=== PATIENT | female | born 1945 | race Caucasian/White ===

== ENCOUNTER 2017-12-12 12:06 | Observation (INO) | payer MEDICARE, OTHER ==
[2017-12-12 12:58] LABS: Urine Bilirubin 3 mg/dl (NEGATIVE); Urine Blood Negative /ul (NEGATIVE); Urine Ketone Negative (NEGATIVE); Urine Nitrite Negative (NEGATIVE); Urine Protein Negative (NEGATIVE); Urine Specific Gravity 1.015 SP.GR. (1.005-1.010); Urine Urobilinogen Normal (NORMAL)
[2017-12-12 13:14] LABS: Albumin * 3.2 gm/dl (3.4-5.0); Anion Gap 13.8 mmol/L (6.8-13.8); BUN/Creatinine Ratio 9.1 (9.0-21.6); Bilirubin, Total 3.4 mg/dL (0.0-1.1); Calcium * 9.7 mg/dL (7.9-10.9); Carbon Dioxide 28.9 mmol/L (24-32.6); Potassium 3.7 mmol/L (3.4-4.6); Total Protein 7.5 gm/dL (6.2-8.2)
[2017-12-12 13:23] LABS: Urine Appearance Clear; Urine Bacteria TRACE; Urine Color Orange; Urine RBC None Seen /hpf (0-5); Urine WBC 0-5 /hpf (0-5)
[2017-12-12 13:46] LABS: Hematocrit 42.9 % (37.0-47.0); Hemoglobin 15.1 gm/dL (12.5-16.0); Mean Cell Volume 92.1 fl (78-100); Mean Corpuscular Hemoglobin 32.4 pg (27-31); Mean Corpuscular Hgb Conc 35.2 g/dl (32-36); Neutrophil # 4.1 K/mm3 (1.3-6.0); Neutrophil % 57.2 % (42-75.0); Platelet Count 192 K/mm3 (150-450); Red Blood Count 4.66 M/mm3 (4.2-5.4); Red Cell Distribution Width 11.7 % (11.5-14.0); White Blood Count 7.2 K/mm3 (4.0-10.5)
[2017-12-12] MEDS ORDERED: DIATRIZOATE MEGLUMINE, SODIUM 30 ML BTL ONE (13:59)
[2017-12-12] MEDS ORDERED: DIATRIZOATE MEGLUMINE, SODIUM 30 ML BTL PO ONE (14:01)
--- NOTE | 2017-12-12 16:11 | ERNOTE ---
Abdominal HPI - Narrative Date of Service: 12/12/17 - General Chief Complaint: Abdominal Pain Time Seen by Provider: 12/12/17 12:29 Source: patient, family, RN notes reviewed, past records Exam Limitations: no limitations - Immun/Allergies/Home Medications Immunizatons: IMMUNIZATION HX History of Influenza Vaccine No Allergies/Adverse Reactions: Allergies No Known Allergies Allergy (Verified 12/12/17 12:18) Home Medications: HOME MEDICATIONS Enalapril/Hydrochlorothiazide [Enalapril-Hctz 5-12.5 mg Tab] 1 each PO DAILY [Last Taken Unknown] Levothyroxine Sodium [Synthroid] 25 mcg PO DAILY 12/12/17 [Last Taken Unknown] Levothyroxine Sodium [Synthroid] 150 mcg PO DAILY 12/12/17 [Last Taken Unknown] Oxybutynin Chloride [Ditropan] 5 mg PO BID 12/12/17 [Last Taken Unknown] Ranitidine HCl [Acid Butadiene Converter Utility Operator] 75 mg PO DAILY 12/12/17 [Last Taken Unknown] - History of Present Illness Narrative: Jessa is a 72 year old female who presents to the ED with abdominal pain that began 3 days ago. The pain is in her epigastric region and radiates outward. She had a similar episode approximately 2 weeks ago that resolved when she had a bowel movement. She reports having a bowel movement today with some improvement in the pain, but not complete resolution. Her bowel movements have been histologic aide in color than usual. She also noticed that her urine was darker than normal. She denies needing any pain medication on initial exam. Prior Abdominal Problems: Present: none Prior Treatment: Absent: recently seen Review of Systems - Review of Systems Constitutional: Present: malaise. Absent: recent illness, fever, chills EYE: Present: no symptoms reported ENT: Absent: nose congestion, sore throat Respiratory: Absent: shortness of breath, cough Cardiology: Present: edema. Absent: chest pain Gastrointestinal/Abdominal: Present: nausea, abdominal pain. Absent: vomiting, diarrhea Genitourinary: Absent: frequency, dysuria Musculoskeletal: Absent: back pain, neck pain Skin: Absent: rash, lesions Neurological: Absent: headache, dizziness/light-headedness Endocrine: Present: no symptoms reported Hematologic/Lymphatic: Absent: easy bruising, easy bleeding Psych: Present: no symptoms reported - Patient's Past Medical History Patient History - Medical: Diabetes Type 2, GERD, Hypothyroidism, Obesity Patient History - Cardiac/Respiratory: Hypertension, Hyperlipidemia Patient History - Cancer: No Hx of Cancer Patient History - Surgical Procedures: No surgical history Patient History - Other: None LMP (females 10-50): Menopausal - Has IUD d/t postmenopausal bleeding - Social History Living Situations: spouse Abuse History: No History of abuse Psych History: No pertinent hx Smoking Status: Never smoker Alcohol Use: none Drug Use: none - Immunizations History of Influenza Vaccine: No Physical Exam - Physical Exam General Appearance: Present: wd/wn, alert, anxious, obese Head Exam: Present: normal inspection Eye Exam: Normal inspection: bilateral Neck: Present: normal inspection, nontender, supple Respiratory: Present: no respiratory distress, normal breath sounds, no accessory muscle use, lungs clear Cardiovascular/Chest: Present: regular rate, rhythm, no murmur Gastrointestinal/Abdominal: Present: normal bowel sounds, nondistended, soft, tenderness - Epigastric and RUQ Extremity Exam: Present: non-tender, normal range of motion, pedal edema Neurological Exam: Present: alert, oriented, normal mood/affect, no motor/ sensory deficits Skin Exam: Present: normal color, warm/dry ED Progress - Results and Orders Patient's Lab Results:: I have reviewed the patient's lab results. - Vital Signs Patient's Vital Signs:: I have reviewed the patient's vital signs. Vital Signs: Vital Signs 12/12/17 12/12/17 12/12/17 12:09 12:51 13:35 Temperature 36.4 C L Pulse Rate 66 68 71 Respiratory 12 14 16 Rate Blood Pressure 124/76 126/78 O2 Sat by Pulse 96 97 94 Oximetry 12/12/17 12/12/17 12/12/17 14:04 14:34 14:56 Temperature Pulse Rate 72 76 70 Respiratory 16 16 14 Rate Blood Pressure 137/71 136/71 144/63 O2 Sat by Pulse 95 98 96 Oximetry 12/12/17 15:17 Temperature Pulse Rate 50 L Respiratory 12 Rate Blood Pressure 157/70 O2 Sat by Pulse 99 Oximetry - Progress/Reassessment Chief Complaint: Abdominal Pain Progress:: Unchanged Plan - Plan Plan: Dr. Brody contacted regarding test results and possible surgical intervention for acute cholecystitis shown by ultrasound. Per my discussion with him, the patient does not need a cholecystectomy or an ERCP emergently, but needs to be treated for acute pancreatitis with IV fluids and repeat labwork. Dr. Martinez contacted and will admit patient to observation status. She will be NPO. Patient agrees with plan. Informed that she will likely need a cholecystectomy at a later time on a scheduled basis. Also discussed possible mass seen on CT with patient and f/u via colonoscopy, which she is due for per Dr. Brody's records. Departure Clinical Impression: Acute pancreatitis Qualifiers: Pancreatitis type: biliary Acute pancreatitis complication: no infection or necrosis Qualified Code(s): K85.10 - Biliary acute pancreatitis without necrosis or infection - Departure Disposition: Still a patient Condition: Stable
[2017-12-12] MEDS ORDERED: NORMAL SALINE 1,000 ML IV ONE (18:50)
[2017-12-12] MEDS ORDERED: POTASSIUM CHLORIDE 20 MEQ in DEXTROSE 5%-NORMAL SALINE 990 ML IV SCH (20:00)
--- NOTE | 2017-12-12 21:08 | HP ---
Chief Complaint - Chief Complaint Date of Service: 12/12/17 Time of Service: 21:06 Chief Complaint: " Abdominal pain, Nausea". Source of HPI- Pt; reliable, ERP Report. History of Present Illness: Mrs. Chaney is a 72-yr-old [place] pt of Dr. Kelechi Martinez with a PMH of: DM II, HTN, HLD, Overactive bladder, Morbid Obesity & ALEXANDRA. Pt states that since October 2017, she has had abdominal symptoms of "paper thin stools, RT upper abdomen pain and cream color stools". She thought her Metformin was causing her symptoms and she saw her PCP and the medication was stopped. She states that her symptoms improved. But for the first 10 days in November 2017, the previous symptoms came back. She thought she was having 'stomach flu' and so she resorted to treating her symptoms with Ranitidine and Advil. This eased her abdominal pain. She reports that in the last 3 days, she has felt more tired than usual. She will wake up and get dressed, but will turn around and sleep. She finally chose to call her PCP's office today about her symptoms and she was advised to go the ED. She denies vomiting but has felt nauseated. Food/drink does not make her abdominal feel worse. She denies fevers and chills. She has no history of ETOH use or dependence. At the ED, Laboratory studies showed: Total bili--> 3.4, AST--> 295, ALT--> 376, ALP--> 402, Lipase--> 1783 & Amylase- -> 137. Abdominal CT revealed: fatty liver,gall bladder distention with calcified gallstone and incidental masslike finding in the anorectal region. Follow-up imaging with Abdominal US showed: Cholelithiasis with gallbladder wall thickening, but no pericholecystic fluid was visualized. The ERP consulted the surgeon ( Dr. Brody) about pt's findings on the imaging studies and he per ERP, he did not think the pt needed emergent Cholecystectomy or an ERCP, but goal of treatment agreed on admitting and treating for the acute pancreatitis and trending labs and further work-up will be determined. - Patient's Past Medical History Patient History - Medical: Diabetes Type 2, GERD, Hypothyroidism, Obesity Patient History - Cardiac/Respiratory: Hypertension, Hyperlipidemia, Sleep Apnea Patient History - Cancer: No Hx of Cancer Patient History - Surgical Procedures: No surgical history Patient History - Other: None LMP (females 10-50): Menopausal - Has IUD d/t postmenopausal bleeding - Family History Father Family History - Medical: Family History - Cardiac/Respiratory: Coronary Heart Disease Mother Family History - Cardiac/Respiratory: Hypertension, Other - alive at 92 yrs. - Social History Living Situations: significant other Abuse History: No History of abuse Psych History: No pertinent hx Smoking Status: Never smoker Have you smoked in the past 12 months: No Alcohol Use: none Drug Use: none - Immunizations History of Influenza Vaccine: No Review Of Systems (GEN) - Review of Systems Generalized/Overall Review: Present: Weakness, Malaise, Fatigue EENTM: Absent: Ear Pain, Nose Congestion Respiratory: Absent: Cough, Shortness of Breath, Orthopnea Cardiac: Absent: Chest Pain, Edema, Palpitations, Syncope Abdominal: Present: Nausea, Abdominal Pain, Constipation, Diarrhea. Absent: Vomiting, Hematemesis Genitourinary: Absent: Burning, Frequency Musculoskeletal: Absent: Joint Pain, Back Pain, Joint Swelling Neurological: Absent: Headache, Anxiety, Depressed, Emotional Problems, Weakness Skin: Absent: Dryness, Lesions, Lumps, Change in Color Endocrine: Present: Intolerance to Cold. Absent: Intolerance to Heat Misc: All systems neg except as marked Immunizations: IMMUNIZATION HX History of Influenza Vaccine No Allergies/Adverse Reactions: Allergies Allergy/AdvReac Type Severity Reaction Status Date / Time No Known Allergies Allergy Verified 12/12/17 12:18 Home Medications: HOME MEDICATIONS Aspirin [Aspirin EC] 81 mg PO DAILY 12/12/17 [Last Taken 12/12/17 08:00] Docusate Sodium [Colace] 100 mg PO DAILY PRN 12/12/17 [Last Taken 12/05/17] Enalapril/Hydrochlorothiazide [Enalapril-Hctz 5-12.5 mg Tab] 1 each PO DAILY [Last Taken Unknown] Levothyroxine Sodium [Synthroid] 25 mcg PO DAILY 12/12/17 [Last Taken Unknown] Levothyroxine Sodium [Synthroid] 150 mcg PO DAILY 12/12/17 [Last Taken Unknown] Lumigan 0.01% Ophthalmic Solution 1 drop EACHEYE DAILY 12/12/17 [Last Taken 21:00] Meclizine HCl 1 mg PO DAILY PRN 12/12/17 [Last Taken Unknown] Ondansetron [Zofran Odt] 1 mg PO PRN PRN 12/12/17 [Last Taken Unknown] Oxybutynin Chloride [Ditropan] 5 mg PO BID 12/12/17 [Last Taken Unknown] Polyethylene Glycol 3350 [Miralax] 17 gm PO DAILY PRN 12/12/17 [Last Taken 12/08] Ranitidine HCl [Acid Route Sales Driver] 75 mg PO DAILY 12/12/17 [Last Taken Unknown] Exam - Exam Vital Signs: Vital Signs - Last Taken Temp 37.0 C 12/12/17 19:29 Pulse 55 L 12/12/17 19:29 Resp 16 12/12/17 19:29 BP 146/78 12/12/17 19:29 Pulse Ox 94 12/12/17 19:29 Constitutional: Present: Alert, Oriented x3, Cooperative, No distress ENT Exam: Present: normal ENT inspection, dry mucous membranes Eye Exam: bilateral eye: normal inspection, PERRL Neck: Present: non-tender, full range of motion, supple Back Exam: Present: normal inspection, no CVA tenderness Breasts: Present: Exam deferred Respiratory: Present: no accessory muscle use, No rales, No wheezing Cardiovascular/Chest: Present: normal peripheral pulses, regular rate, rhythm, no chest tenderness, no edema Abdomen: Present: Normal bowel sounds, soft, no rebound tenderness, tender - RUQ. Absent: guarding /Rectal: Present: Exam deferred Extremity: Present: normal range of motion, non-tender, normal inspection Skin Exam: Present: warm/dry, no cyanosis Lymphatic: Present: no adenopathy Neurologic: Present: alert, normal mood/affect, oriented x 3 Appearance: Present: appropriate appearance, appropriate insight Eye contact: Present: cooperative, good eye contact, normal speech Thoughts: Present: no apparent hallucination Diagnostic Studies: Abnormal Lab Results 12/12/17 Range/Units 20:05 Amylase 137 H (25-115) U/L Laboratory Results WBC 7.2 K/mm3 (4.0-10.5) 12/12/17 12:55 RBC 4.66 M/mm3 (4.2-5.4) 12/12/17 12:55 Hgb 15.1 gm/dL (12.5-16.0) 12/12/17 12:55 Hct 42.9 % (37.0-47.0) 12/12/17 12:55 MCV 92.1 fl (78-100) 12/12/17 12:55 MCH 32.4 pg (27-31) H 12/12/17 12:55 MCHC 35.2 g/dl (32-36) 12/12/17 12:55 RDW 11.7 % (11.5-14.0) 12/12/17 12:55 Plt Count 192 K/mm3 (150-450) 12/12/17 12:55 MPV 12.0 fl (6.0-9.5) H 12/12/17 12:55 Immature Gran % (Auto) 0.30 % (0.001-0.429) 12/12/17 12:55 Immature Gran # (Auto) 0.02 K/mm3 (0.000-0.0310) 12/12/17 12:55 Neutrophils % 57.2 % (42-75.0) 12/12/17 12:55 Lymphocytes % 26.1 % (20-51) 12/12/17 12:55 Monocytes % 11.0 % (0.0-9) H 12/12/17 12:55 Eosinophils % 4.0 % (0.0-3.0) H 12/12/17 12:55 Basophils % 1.4 % (0.0-1.0) H 12/12/17 12:55 Nucleated RBC % 0.0 k/mm3 (0-1) 12/12/17 12:55 Neutrophils # 4.1 K/mm3 (1.3-6.0) 12/12/17 12:55 Lymphocytes # 1.9 k/mm3 (1.5-3.5) 12/12/17 12:55 Monocytes # 0.8 k/mm3 (0.0-1.0) 12/12/17 12:55 Eosinophils # 0.3 k/mm3 (0.0-0.7) 12/12/17 12:55 Absolute Basophils 0.1 k/mm3 (0.0-0.1) 12/12/17 12:55 Sodium 140 mmol/L (132-142) 12/12/17 12:55 Plasma Sodium 140 mmol/L (130-142) 12/12/17 12:55 Potassium 3.7 mmol/L (3.4-4.6) 12/12/17 12:55 Chloride 101 mmol/L (97-106) 12/12/17 12:55 Carbon Dioxide 28.9 mmol/L (24-32.6) 12/12/17 12:55 Anion Gap 13.8 mmol/L (6.8-13.8) 12/12/17 12:55 BUN 7 mg/dL (3-23) 12/12/17 12:55 Creatinine 0.77 mg/dL (0.4-1.4) 12/12/17 12:55 Est GFR (Non-Af Amer) 79 mL/min (60-130) 12/12/17 12:55 BUN/Creatinine Ratio 9.1 (9.0-21.6) 12/12/17 12:55 Random Glucose 126 mg/dL (70-110) H 12/12/17 12:55 Calcium 9.7 mg/dL (7.9-10.9) 12/12/17 12:55 Calcium Adj for Albumin 10.0 mg/dL (8.4-10.2) 12/12/17 12:55 Total Bilirubin 3.4 mg/dL (0.0-1.1) H 12/12/17 12:55 AST 295 U/L (0-48) H 12/12/17 12:55 ALT 376 U/L (19-67) H 12/12/17 12:55 Alkaline Phosphatase 402 U/L (50-170) H 12/12/17 12:55 Total Protein 7.5 gm/dL (6.2-8.2) 12/12/17 12:55 Albumin 3.2 gm/dl (3.4-5.0) L 12/12/17 12:55 Amylase 137 U/L (25-115) H 12/12/17 20:05 Lipase 1783 U/L (73-393) H 12/12/17 12:55 Urine Color [place] 12/12/17 12:46 Urine Appearance Clear 12/12/17 12:46 Urine pH 6.0 pH (5.0-7.0) 12/12/17 12:46 Ur Specific [place] 1.015 SP.GR. (1.005-1.010) 12/12/17 12:46 Urine Protein Negative mg/dL (NEGATIVE) 12/12/17 12:46 Urine Glucose (UA) Negative mg/dL (NEGATIVE) 12/12/17 12:46 Urine Ketones Negative mg/dL (NEGATIVE) 12/12/17 12:46 Urine Blood Negative /ul (NEGATIVE) 12/12/17 12:46 Urine Nitrate Negative (NEGATIVE) 12/12/17 12:46 Urine Bilirubin 3 mg/dl (NEGATIVE) H 12/12/17 12:46 Urine Ictotest Positive (NEGATIVE) H 12/12/17 12:46 Urine Urobilinogen Normal EU/dl (NORMAL) 12/12/17 12:46 Ur Leukocyte Esterase 25 /ul (NEGATIVE) H 12/12/17 12:46 Urine RBC None seen /hpf (0-5) 12/12/17 12:46 Urine WBC 0-5 /hpf (0-5) 12/12/17 12:46 Ur Epithelial Cells 0-5 /hpf (0-5) 12/12/17 12:46 Urine Bacteria Trace (NONE) 12/12/17 12:46 Urine Culture Comments Culture to follow 12/12/17 12:46 Assessment/Plan - Assessment/Plan (1) Acute pancreatitis Assessment: Pt reports abdominal pain in the RUQ and is tender on physical exam. There is no guarding or rebound tenderness. She denies fevers and chills. WBC is in the NR. Abdominal CT showed normal appearing Pancreas, but the findings on the CT Abdomen and US abd involving gallstones and distended gall bladder suggest gallsstones may be the cause of the Acute Pancreatitis. Will admit and provide supportive cares with: aggressive IVF hydration to prevent risk of necrotizing pancreatitis, pain control, antiemetics, resting the gut. Will trend Amylase/ Lipase, surgery consulted and will eval. tomorrow. Laboratory Tests 12/12/17 12/12/17 12:55 20:05 Amylase 137 H Lipase 1783 H Problem: Acute Qualifiers: Pancreatitis type: biliary Acute pancreatitis complication: no infection or necrosis Qualified Code(s): K85.10 - Biliary acute pancreatitis without necrosis or infection (2) Cholelithiasis Assessment: On Abdominal US- gall bladder wall thickening, no pericholecystic fluid. Determined not to require emergent cholecystectomy or ERCP. She has no signs of SIRS- no fevers, Leukocytosis, but will check CRP levels. Surgery to eval in am. Problem: Acute (3) Elevated liver enzymes Problem: Chronic (4) High total bilirubin Assessment: Will check direct bili to determine indirect bili. ? Diff Dx; could be due to intrahepatic obstruction, gallstones or cholangiocarcinoma Problem: Acute (5) Diabetes Assessment: HgA1c on 10/25/17- 6.3. Not on any oral glycemic medications. Monitor accuchecks ACHS. Continue IV fluid with dextrose while NPO. Problem: Chronic Qualifiers: Diabetes mellitus type: type 2 (6) HTN (hypertension) Assessment: Stable- On Enalapril Problem: Chronic Qualifiers: Hypertension type: essential hypertension Qualified Code(s): I10 - Essential (primary) hypertension (7) Obstructive sleep apnea Problem: Chronic (8) Morbid obesity with BMI of 45.0-49.9, adult Problem: Chronic
[2017-12-12] MEDS ORDERED: DOCUSATE SODIUM 100 MG CAPSULE PO PRN (23:10)
[2017-12-12] MEDS ORDERED: ONDANSETRON 4 MG TAB.RAPDIS PO PRN (23:10)
[2017-12-12] MEDS ORDERED: MECLIZINE HCL 25 MG TABLET PO PRN (23:10)
[2017-12-12] MEDS ORDERED: POLYETHYLENE GLYCOL 3350 119 GM BTL PO PRN (23:10)
[2017-12-13] MEDS: POTASSIUM CHLORIDE 20 MEQ in DEXTROSE 5%-NORMAL SALINE 990 ML IV SCH ×2 (00:45→08:16)
[2017-12-13 05:09] LABS: Prothrombin Time (Patient) 11.1 Seconds (9.0-11.0)
[2017-12-13 05:10] LABS: INR 1.11 INR (0.90-1.10)
[2017-12-13 05:15] LABS: Albumin * 2.3 gm/dl (3.4-5.0); Anion Gap 7.3 mmol/L (6.8-13.8); BUN/Creatinine Ratio 9.7 (9.0-21.6); Bilirubin Direct 0.6 mg/dL (0.0-0.3); Bilirubin, Total 1.7 mg/dL (0.0-1.1); Ca. Corrected For Albumin 8.7 mg/dL (8.4-10.2); Calcium * 7.7 mg/dL (7.9-10.9); Carbon Dioxide 28.1 mmol/L (24-32.6); Potassium 3.4 mmol/L (3.4-4.6); Total Protein 5.5 gm/dL (6.2-8.2)
[2017-12-13] MEDS ORDERED: MORPHINE SULFATE 2 MG/ML DISP.SYRIN IV PRN (05:57)
[2017-12-13] MEDS ORDERED: ONDANSETRON HCL/PF 2 MG/ML VIAL IV PRN (05:57)
--- NOTE | 2017-12-13 06:15 | PN ---
Subjective - Date and Time Seen Date: 12/13/17 Time: 06:11 Subjective Narrative: Pt examined this am. Denies nausea. She has occasional upper abd pain but did not require any prn. Has been NPO. No other acute events overnight. Objective - Vitals Vitals: Last Vital Signs Temp 36.4 C L 12/13/17 01:00 Pulse 60 12/13/17 01:00 Resp 18 12/13/17 01:00 BP 118/63 12/13/17 01:00 Pulse Ox 91 12/13/17 01:00 - Abnormal Lab Findings Abnormal Lab Findings: Abnormal Lab Results 12/12/17 12/13/17 12/13/17 Range/Units 20:05 04:58 04:58 PT 11.1 H (9.0-11.0) Seconds INR (Anticoag Therapy) 1.11 H (0.90-1.10) INR Random Glucose 166 H D (70-110) mg/dL Calcium 7.7 L (7.9-10.9) mg/dL Total Bilirubin 1.7 H (0.0-1.1) mg/dL Direct Bilirubin 0.6 H (0.0-0.3) mg/dL AST 122 H (0-48) U/L ALT 213 H (19-67) U/L Alkaline Phosphatase 273 H (50-170) U/L C-Reactive Prot, Quant 4.0 H (0.0-0.9) mg/dL Total Protein 5.5 L (6.2-8.2) gm/dL Albumin 2.3 L (3.4-5.0) gm/dl Amylase 137 H (25-115) U/L Lipase 1095 H (73-393) U/L - Exam Constitutional: Present: Alert, Oriented x3, Cooperative, No distress, Morbidly obese ENT Exam: Present: normal ENT inspection, hearing grossly normal. Absent: nasal drainage Neck: Present: non-tender, full range of motion, supple Breasts: Present: Exam deferred Respiratory: Present: lungs clear, No rales, No wheezing Cardiovascular/Chest: Present: normal peripheral pulses, regular rate, rhythm, no chest tenderness Abdomen: Present: Normal bowel sounds, soft, no rebound tenderness, tender - RUQ. Absent: guarding /Rectal: Present: Exam deferred Extremity: Present: normal range of motion, non-tender, normal inspection Skin Exam: Present: warm/dry, no cyanosis Lymphatic: Present: no adenopathy Neurologic: Present: alert, normal mood/affect, oriented x 3 Appearance: Present: appropriate appearance, appropriate insight Eye contact: Present: cooperative, good eye contact, normal speech Thoughts: Present: normal thought pattern, no apparent hallucination Assessment/Plan - Problems/Diagnosis (1) Acute pancreatitis Problem: Acute Qualifiers: Pancreatitis type: biliary Acute pancreatitis complication: no infection or necrosis Qualified Code(s): K85.10 - Biliary acute pancreatitis without necrosis or infection Narrative: Pt reports abdominal pain in the RUQ and is tender on physical exam. There is no guarding or rebound tenderness. She denies fevers and chills. WBC is in the NR. Abdominal CT showed normal appearing Pancreas, but the findings on the CT Abdomen and US abd involving gallstones and distended gall bladder suggest gallstones may be the cause of the Acute Pancreatitis. Will admit and provide supportive cares with: aggressive IVF hydration to prevent risk of necrotizing pancreatitis, pain control, antiemetics, resting the gut. Will trend Amylase/ Lipase, surgery consulted and will eval. tomorrow. Laboratory Tests 12/12/17 12/12/17 12/13/17 12:55 20:05 04:58 Amylase 137 H 67 Lipase 1783 H 1095 H (2) Cholelithiasis Problem: Acute Narrative: On Abdominal US- gall bladder wall thickening, no pericholecystic fluid. Determined not to require emergent cholecystectomy or ERCP. She has no signs of SIRS- no fevers, Leukocytosis, but will check CRP levels. Surgery to eval in am. (3) Elevated liver enzymes Problem: Acute (4) High total bilirubin Problem: Acute (5) Diabetes Problem: Chronic Qualifiers: Diabetes mellitus type: type 2 Narrative: HgA1c on 10/25/17- 6.3. Not on any oral glycemic medications. Monitor accuchecks ACHS. Continue IV fluid with dextrose while NPO. (6) HTN (hypertension) Problem: Chronic Qualifiers: Hypertension type: essential hypertension Qualified Code(s): I10 - Essential (primary) hypertension Narrative: Stable- On Enalapril. (7) Obstructive sleep apnea Problem: Chronic (8) Morbid obesity with BMI of 45.0-49.9, adult Problem: Chronic
[2017-12-13] MEDS ORDERED: MECLIZINE HCL 25 MG TABLET PO PRN (06:30)
[2017-12-13] MEDS ORDERED: LEVOTHYROXINE SODIUM 150 MCG TABLET PO SCH (07:00)
[2017-12-13] MEDS ORDERED: LEVOTHYROXINE SODIUM 175 MCG TABLET PO SCH (07:15)
[2017-12-13] MEDS ORDERED: FAMOTIDINE 20 MG TABLET PO SCH (09:00)
[2017-12-13] MEDS ORDERED: ASPIRIN 81 MG TABLET.DR PO SCH (09:00)
[2017-12-13] MEDS ORDERED: ENALAPRIL MALEATE 5 MG TABLET PO SCH (09:00)
[2017-12-13] MEDS ORDERED: HYDROCHLOROTHIAZIDE 12.5 MG CAPSULE PO SCH (09:00)
[2017-12-13] MEDS ORDERED: LEVOTHYROXINE SODIUM 25 MCG TABLET PO SCH (09:00)
[2017-12-13] MEDS ORDERED: OXYBUTYNIN CHLORIDE 5 MG TABLET PO SCH (09:00)
[2017-12-13] MEDS ORDERED: BIMATOPROST 25 DROP BTL EACHEYE SCH (09:00)
--- NOTE | 2017-12-13 11:16 | DS ---
(1) Acute pancreatitis Problem: Acute Qualifiers: Pancreatitis type: biliary Acute pancreatitis complication: no infection or necrosis Qualified Code(s): K85.10 - Biliary acute pancreatitis without necrosis or infection Description of Stay: 72-year-old white female was admitted through the emergency room because of upper abdominal pain which have been having for several days and has gotten worse. Ultrasound of the gallbladder showed evidence of cholelithiasis and positive McBurney's sign. Liver enzyme is elevated amylase and lipase are also elevated. Surgical consultation was obtained from Dr. Brody and his recommendation because of her morbid obesity to be transferred to another hospital. I made arrangement for her to be transferred to [facility] and was accepted by Dr. Solis Procedures Performed: none Discharge Disposition: [facility] Emergency Department Disposition: Home self-care Condition: Stable Referrals: Kelechi Martinez MD [Primary Care Provider] - Complete Home Medications List: Complete Home Medication List: Aspirin [Aspirin EC] 81 mg PO DAILY 12/12/17 Docusate Sodium [Colace] 100 mg PO DAILY PRN 12/12/17 Enalapril/Hydrochlorothiazide [Enalapril-Hctz 5-12.5 mg Tab] 1 each PO DAILY Levothyroxine Sodium [Synthroid] 25 mcg PO DAILY 12/12/17 Levothyroxine Sodium [Synthroid] 150 mcg PO DAILY 12/12/17 Meclizine HCl 25 mg PO DAILY PRN 12/12/17 Ondansetron [Zofran Odt] 1 mg PO PRN PRN 12/12/17 Oxybutynin Chloride [Ditropan] 5 mg PO BID 12/12/17 Polyethylene Glycol 3350 [Miralax] 17 gm PO DAILY PRN 12/12/17 Ranitidine HCl [Acid Envelope Cutter] 75 mg PO DAILY 12/12/17 Bimatoprost [Lumigan 0.01% Opth Solution] 1 drop OP DAILY 12/13/17
[2017-12-13 11:24] VITALS: BP 103/62
--- NOTE | 2017-12-13 15:11 | CONS ---
[facility] - General Date of Service: 12/13/17 Narrative: The patient is a 72-year-old female presented to the emergency room yesterday with abdominal pain. She was found to have elevated liver function studies, amylase/lipase with ultrasound evidence of gallstones, thickened gallbladder wall but normal ducts. CT scan of the abdomen and pelvis did not show inflammatory changes around the gallbladder or pancreas. Presumptive diagnosis was gallstone pancreatitis and the case was discussed with me last night. I explained that our limitations with surgical instruments preclude operation on patients with a BMI of greater than 40, however she could be admitted here for medical management of the pancreatitis with referral for surgery when the pancreatitis resolved. Source: patient, RN/MD, RN notes reviewed, old records Exam Limitations: no limitations - History of Present Illness Initial Comments: The patient is a vague historian however applied directed questioning following history was obtained. She developed mid and lower abdominal discomfort the first week in November. She states the pain was constant and associated with severe constipation--- she apparently did not move her bowels for many days. She started MiraLAX and a stool softener. She describes creme colored bowel movements and dark urine. After about 10 days her bowels were moving and turned back brown and the pain went away. Then again on 12/09 or maybe 12/10 she redeveloped midabdominal discomfort. The pain continued on 12/11/2017 and because this felt like a previous episode of pancreatitis she told her she was coming to the doctor yesterday. She called Dr. Martinez's office and was told to go to the emergency room. Today she is not having much pain, but is very thirsty. She has not moved her bowels. She was admitted in 2010 for abdominal pain with elevated white blood cell count. Amylase/lipase were normal at the time however the CT scan mentioned peripancreatic inflammation. She was treated with IV fluids, the pain resolved promptly and she was discharged. Since admission her vital signs have been normal. Initial bilirubin was 3.4 and today is 1.7. AST has decreased from 295-122. ALT has decreased from 376-213. Alkaline phosphatase is decreased from 402-273. Amylase has decreased from 137 to normal at 67. Lipase has decreased from 2287-4260. Allergies/Adverse Reactions: Allergies No Known Allergies Allergy (Verified 12/12/17 12:18) Home Medications: Home Medications Medication Instructions Recorded Last Taken Aspirin [Aspirin EC] 81 mg PO DAILY 12/12/17 12/12/17 08:00 Docusate Sodium [Colace] 100 mg PO DAILY PRN 12/12/17 12/05/17 Enalapril/Hydrochlorothiazide 1 each PO DAILY 12/12/17 Unknown [Enalapril-Hctz 5-12.5 mg Tab] Levothyroxine Sodium [Synthroid] 25 mcg PO DAILY 12/12/17 Unknown Levothyroxine Sodium [Synthroid] 150 mcg PO DAILY 12/12/17 Unknown Meclizine HCl 25 mg PO DAILY PRN 12/12/17 Unknown Ondansetron [Zofran Odt] 1 mg PO PRN PRN 12/12/17 Unknown Oxybutynin Chloride [Ditropan] 5 mg PO BID 12/12/17 Unknown Polyethylene Glycol 3350 [Miralax] 17 gm PO DAILY PRN 12/12/17 12/08/17 Ranitidine HCl [Acid Signalman] 75 mg PO DAILY 12/12/17 Unknown Bimatoprost [Lumigan 0.01% Opth 1 drop OP DAILY 12/13/17 Unknown Solution] - Patient's Past Medical History Patient History - Medical: Diabetes Type 2, GERD, Hypothyroidism, Obesity Patient History - Cardiac/Respiratory: Hypertension, Hyperlipidemia, Sleep Apnea Patient History - Cancer: No Hx of Cancer Patient History - Surgical Procedures: No surgical history Patient History - Other: None LMP (females 10-50): Menopausal - Has IUD d/t postmenopausal bleeding - Family History Father Family History - Medical: Family History - Cardiac/Respiratory: Coronary Heart Disease Mother Family History - Cardiac/Respiratory: Hypertension, Other - alive at 92 yrs. - Social History Living Situations: significant other Abuse History: No History of abuse Psych History: No pertinent hx Smoking Status: Never smoker Have you smoked in the past 12 months: No Alcohol Use: none Drug Use: none - Immunizations History of Influenza Vaccine: No Procedures CARPAL TUNNEL RELEASE (03/06/10) CLOSED BIOPSY OF UTERUS (08/12/05) D & C NEC (08/12/05) ENDOSC POLYPECTOMY OF LG INTEST (12/18/09) URIN INCONTIN REPAIR NEC (11/04/05) Review of Systems - Review of Systems Generalized/Overall Review: Present: Fatigue. Absent: Chills, Fever EENTM: Present: No Symptoms Reported Respiratory: Present: No Symptoms Reported Cardiac: Present: No Symptoms Reported Abdominal: Present: Other - Her abdomen hurts less. It does not hurt if she coughs but is tender. Genitourinary: Present: No Symptoms Reported Musculoskeletal: Present: No Symptoms Reported Neurological: Present: No Symptoms Reported Skin: Present: No Symptoms Reported Physical Examination - Exam Vital Signs: Vital Signs - Last Taken Temp 36.8 C 12/13/17 06:37 Pulse 60 L 12/13/17 06:37 Resp 16 H 12/13/17 06:37 BP 112/62 12/13/17 06:37 Pulse Ox 93 12/13/17 06:37 O2 Oxygen Delivery Method Room Air Constitutional: Present: Alert, Oriented x3, Cooperative, No distress ENT Exam: Present: normal ENT inspection Eye Exam: bilateral eye: normal inspection - anicteric Neck: Present: normal inspection, other - short thick neck Respiratory: Present: no respiratory distress Cardiovascular/Chest: Present: regular rate, rhythm Abdomen: Present: other - Globoid and morbidly obese with tympany to percussion but no percussion tenderness. Mild tenderness along the mid abdomen from right to left. No guarding, no rebound. Fat-containing umbilical hernia /Rectal: Present: Exam deferred Extremity: Present: normal inspection, no calf tenderness Skin Exam: Present: normal color, warm/dry Neurologic: Present: tribal delegate II-XII nml as tested, no motor/sensory deficits Appearance: Present: appropriate appearance Eye contact: Present: cooperative, good eye contact, normal speech Thoughts: Present: normal thought pattern - Results and Findings: Lab/Microbiology results last 24 hrs: Abnormal/Pending Laboratory Last 24 HRS 12/13/17 12/13/17 12/12/17 04:58 04:58 20:05 PT 11.1 H INR (Anticoag Therapy) 1.11 H Random Glucose 166 H D Calcium 7.7 L Total Bilirubin 1.7 H Direct Bilirubin 0.6 H AST 122 H ALT 213 H Alkaline Phosphatase 273 H C-Reactive Prot, Quant 4.0 H Total Protein 5.5 L Albumin 2.3 L Amylase 137 H Lipase 1095 H - Assessments/Findings (1) Acute pancreatitis Diagnosis(s): Presumed gallstone pancreatitis, improving. Recurrent by history. [place]at[place] treatment would be cholecystectomy during index admission possibly to include cholangiogram. Her surgery should be performed at a higher level center due to her BMI and comorbidities. Problem: Acute Qualifiers: Pancreatitis type: biliary Acute pancreatitis complication: no infection or necrosis Qualified Code(s): K85.10 - Biliary acute pancreatitis without necrosis or infection (2) Cholelithiasis Diagnosis(s): Confirmed by ultrasound. Normal ductal structures however ultrasound compromised by obesity. Problem: Chronic (3) Diabetes Problem: Chronic Qualifiers: Diabetes mellitus type: type 2 (4) HTN (hypertension) Problem: Chronic Qualifiers: Hypertension type: essential hypertension Qualified Code(s): I10 - Essential (primary) hypertension (5) Morbid obesity with BMI of 45.0-49.9, adult Problem: Chronic (6) Obstructive sleep apnea Problem: Chronic
== END 2017-12-13 11:50 | disposition short-term general hospital (02) ==
LOC: ER 12:06 → MS 18:40
PROVIDERS: ADMIT Internal Medicine; ATTEND Internal Medicine
DX: E66.01 Morbid (severe) obesity due to excess calories; R74.8 Abnormal levels of other serum enzymes; I10 Essential (primary) hypertension; K85.10 Biliary acute pancreatitis without necrosis or infection; K80.20 Calculus of gallbladder without cholecystitis without obstruction; E03.9 Hypothyroidism, unspecified; Z68.42 Body mass index [BMI] 45.0-49.9, adult
CPT/HCPCS: 36415; 74019; 74177; 76705; 80053; 81001; 82150; 82248; 83690; 84484; 85025; 85610; 86140; 87086; 93005; 99284; G0378